=== PATIENT | male | born 1935 | race Caucasian/White ===

== ENCOUNTER 2017-12-09 00:42 | Observation (INO) | payer MEDICARE, BC ==
--- NOTE | 2017-12-09 01:13 | Emergency Department Record ---
History of Present Illness - General Chief Complaint: Cough Stated Complaint: COUGH/CHEST PAIN Time Seen by Provider: 12/09/17 01:08 Source: Patient Mode of Arrival: Ambulatory Limitations: No limitations - History of Present Illness Initial Comments: The patient is here due to a one week hx of cough and congestion. Now this evening he started having CP only when coughing. He denies any new SOB, fever, or sputum production. The patient had been to [facility] about a month ago for similar issues and was diagnosed with mild CHF. Complaint: Cough Onset/Timin -: Week(s) - Related Data Home Medications Medication Instructions Recorded Confirmed Last Taken Amlodipine Besylate [Norvasc] 2.5 mg PO DAILY 12/09/17 12/09/17 Unknown Aspirin [Aspir-Low] 81 mg PO DAILY 12/09/17 12/09/17 Unknown Atorvastatin Calcium [Lipitor] 10 mg PO QHS 12/09/17 12/09/17 Unknown Carvedilol 25 mg PO DAILY 12/09/17 12/09/17 Unknown Carvedilol [Coreg] 6.25 mg PO BID 12/09/17 12/09/17 Unknown Donepezil HCl [Aricept] 5 mg PO DAILY 12/09/17 12/09/17 Unknown Furosemide [Lasix] 20 mg PO DAILY 12/09/17 12/09/17 Unknown Isosorbide Mononitrate [Imdur] 30 mg PO DAILY 12/09/17 12/09/17 Unknown Lisinopril 20 mg PO DAILY 12/09/17 12/09/17 Unknown Memantine HCl [Namenda] 10 mg PO BID 12/09/17 12/09/17 Unknown Multivit-Min/FA/Lycopen/Lutein 1 each PO DAILY 12/09/17 12/09/17 Unknown [Centrum Silver Men Tablet] Omeprazole 20 mg PO DAILY 12/09/17 12/09/17 Unknown Rivaroxaban [Xarelto] 20 mg PO DAILY 12/09/17 12/09/17 Unknown Tramadol HCl 50 mg PO Q6H PRN 12/09/17 12/09/17 Unknown Allergies Allergy/AdvReac Type Severity Reaction Status Date / Time Cephalosporins Allergy pt unsure Verified 12/09/17 01:29 clonidine Allergy RASH Verified 12/09/17 01:29 lovastatin Allergy pt unsure Verified 12/09/17 01:29 oxaprozin AdvReac fall asleep Verified 12/09/17 01:29 rofecoxib [From Vioxx] AdvReac leg pain Verified 12/09/17 01:29 simvastatin [From Zocor] AdvReac myalgia Verified 12/09/17 01:29 Travel Screening - Travel/Exposure Within Last 30 Days Have you traveled within the last 30 days?: No Review of Systems Constitutional: Reports: Malaise. Denies: Chills, Fever Eyes: Denies: Eye discharge ENT: Reports: Congestion Respiratory: Reports: Cough. Denies: Dyspnea Cardiovascular: Reports: Chest pain (with cough only.). Denies: Arrhythmia Endocrine: Reports: Fatigue Gastrointestinal: Denies: Abdominal pain Genitourinary: Denies: Dysuria Musculoskeletal: Denies: Arthralgia, Back pain Skin: Denies: Bruising Past Medical History - SOCIAL HISTORY Smoking Status: Never smoker Alcohol Use: None Drug Use: None - RESPIRATORY Hx Respiratory Disorders: Yes Hx COPD: Yes - CARDIOVASCULAR Hx Cardio Disorders: Yes Hx CHF: Yes Hx Heart Attack: Yes - NEURO Hx Neuro Disorders: Yes Hx Dementia: Yes - GI Hx GI Disorders: Yes Hx Reflux: Yes - Hx Genitourinary Disorders: No - ENDOCRINE Hx Endocrine Disorders: No - MUSCULOSKELETAL Hx Musculoskeletal Disorders: Yes Hx Arthritis: Yes - PSYCH Hx Psych Problems: No - HEMATOLOGY/ONCOLOGY Hx Hematology/Oncology Disorders: Yes Hx Cancer: Yes (Esophageal) Hx Chemotherapy: No Hx Radiation Therapy: No Family Medical History Any Significant Family History?: No Physical Exam - General General Appearance: Alert, Oriented x3, Cooperative, No acute distress - Head Head exam: Atraumatic, Normocephalic, Normal inspection - Eye Eye exam: Normal appearance - ENT Throat exam: Normal inspection. negative: Tonsillar erythema, Tonsillar exudate - Neck Neck exam: Normal inspection, Full ROM. negative: Tenderness - Respiratory Respiratory exam: Normal lung sounds bilaterally. negative: Respiratory distress - Cardiovascular Cardiovascular Exam: Regular rate, Normal rhythm, Normal heart sounds - GI/Abdominal GI/Abdominal exam: Soft, Normal bowel sounds. negative: Tenderness - Extremities Extremities exam: Normal inspection, Full ROM, Normal capillary refill. negative: Tenderness - Back Back exam: Reports: Normal inspection - Neurological Neurological exam: Alert, Oriented X3. negative: Altered, Motor sensory deficit - Skin Skin exam: negative: Rash Course Vital Signs 12/09/17 00:45 Temperature 97.6 F Pulse Rate 76 Respiratory 20 Rate Blood Pressure 188/86 Pulse Ox 97 - Reevaluation(s) Reevaluation #1: The patient is doing OK at this time and is still coughing. His CXR clearly appears to be CHF and his BNP was only about 1000 last month and now is over 5000. We will admit him to the hospital for diuresis and also further cardiac monitoring. I again asked him about his CP and he states he ONLY has pain when coughing. 12/09/17 01:49 Reevaluation #2: The patient is doing very well at this time. He is resting comfortably in no distress or TREV now. 12/09/17 02:26 Medical Decision Making - Data Complexity MDM Data: Labs Ordered and/or Reviewed, X-Ray Ordered and/or Reviewed, EKG Ordered and/or Reviewed - Lab Data Result diagrams: 12/09/17 00:34 12/09/17 00:34 - EKG Data -: EKG Interpreted by Me (NSR at 76, LBBB.) EKG: Unchanged From Previous (No change from 06/18/17.) - Radiology Data Radiology results: Report reviewed (CXR: CHF with effusions.) Disposition Disposition: Admit Clinical Impression: CHF (congestive heart failure) Qualifiers: Heart failure type: unspecified Heart failure chronicity: unspecified Qualified Code(s): I50.9 - Heart failure, unspecified Disposition: Still a Patient at [facility] Decision to Admit: Admit from ER Decision to Admit Date: 12/09/17 Decision to Admit Time: 01:51 Accepting Physician: Ely Valiente Discussed w/Accepting Physician: 01:51 Condition: (2) Stable Time of Disposition: 01:52 Quality - Quality Measures Quality Measures: N/A - Blood Pressure Screening View Details: Yes Does Patient Have Any of the Following: Active Dx of HTN Blood Pressure Classification: Pre-Hypertensive BP Reading Systolic Measurement: 188 Diastolic Measurement: 86 Screening for High Blood Pressure: Patient Exclusion, Hx of HTN [[id number]]
[2017-12-09 01:19] LABS: BASO % 0.3 % (0-6); EOS % 3.1 % (0-6); GRAN % 74.3 % (47-80); HEMATOCRIT 39.8 % (42.0-52.0); HEMOGLOBIN 12.1 gm/dl (14.0-18.0); LYMPH % 14.8 % (16-45); MEAN CELL VOLUME 81.2 fl (81-97); MEAN CORPUSCULAR HEMOGLOBIN 24.6 pg (27-33); MEAN CORPUSCULAR HGB CONC 30.4 g/dl (32-36); MEAN PLATELET VOLUME 10.2 fl (7.4-10.4); MONO % 7.5 % (0-9); PLATELET COUNT 168 K/uL (130-400); RED CELL DISTRIBUTION WIDTH 14.7 % (11.5-14.5); WHITE BLOOD COUNT W/O DIFF 7.1 K/uL (4.2-12.2)
[2017-12-09 01:27] LABS: BLOOD UREA NITROGEN 24 mg/dL (8-23); CREATININE 1.3 mg/dL (0.7-1.2); EST GLOMERULAR FILTRATION RATE 56 mL/min
[2017-12-09 01:30] LABS: GLUCOSE,RANDOM 136 mg/dL (74-109); INR 1.5; PARTIAL THROMBOPLASTIN TIME 40.5 SECONDS (24.5-39.1); PROTHROMBIN TIME (PATIENT) 14.5 SECONDS (9.5-12.1)
[2017-12-09 01:33] LABS: CREATINE PHOSPHOKINASE 31 U/L (39-308)
[2017-12-09] MEDS ORDERED: FUROSEMIDE IV 40MG/4ML VIAL IVP ONE (01:45)
[2017-12-09] MEDS ORDERED: NITROGLYCERIN 2% OINT 1GM PKT TOP ONE (01:47)
[2017-12-09] MEDS ORDERED: TRAMADOL HCL 50 MG TABLET PO PRN (02:39)
[2017-12-09] MEDS ORDERED: NITROGLYCERIN 0.4MG SL TABLET #25 BTL SL PRN (02:39)
[2017-12-09 06:43] LABS: CKMB 2.5 ng/mL (<6.73)
[2017-12-09] MEDS: PANTOPRAZOLE SODIUM 40 MG TABLET PO SCH (06:56)
--- NOTE | 2017-12-09 08:41 | History & Physical ---
History of Present Illness - Date of Service Date of Service for History & Physical: 12/09/17 - History of Present Illness Admitting Diagnosis: 1. CHF History of Present Illness: Mr. Henry is a 81 y/o male [facility] assisted living resident with history of congestive heart failure who presents with complaint of increasing shortness of breath and persistent cough over the past week. The patient reports that he then began to have chest pain but only when he coughs. He says that he becomes short of breath when he climbs stairs but can walk around using his walker without becoming winded. The patient reports compliance with his medications and has not been eating excessive amounts of salty foods or had an increase in fluid intake. He denies radiation of his pain or palpitations. He has a history of coronary artery disease with CABG x 3, CVA, seizures and malignant neoplasm of the esophagus. 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 Chest xray shows evidence of congestion and his BNP > 5000. The patient is admitted for IV diuresis and optimization of heart failure medication. PCP: Dr. Jones Travel Screening - Travel/Exposure Within Last 30 Days Have you traveled within the last 30 days?: No - Travel/Exposure Within Last Year Have you traveled outside the [place] in the last year?: No - Additonal Travel Details Have you been exposed to anyone with a communicable illness?: No - Travel Symptoms Symptom Screening: None Review of Systems Constitutional: Reports: Malaise. Denies: Chills, Fever Eyes: Denies: Eye discharge ENT: Reports: Congestion Respiratory: Reports: Cough. Denies: Dyspnea Cardiovascular: Reports: Chest pain (with cough only.). Denies: Arrhythmia Endocrine: Reports: Fatigue Gastrointestinal: Denies: Abdominal pain Genitourinary: Denies: Dysuria Musculoskeletal: Denies: Arthralgia, Back pain Skin: Denies: Bruising Past Medical History - SOCIAL HISTORY Smoking Status: Former smoker Alcohol Use: Rare Drug Use: None - RESPIRATORY Hx Respiratory Disorders: Yes Hx Asthma: No Hx Bronchitis: No Hx COPD: No Hx Dyspnea: Yes Hx Pneumonia: Yes Hx Pulmonary Embolism: No Hx Sleep Apnea: Yes Hx Tuberculosis: No Hx of CPAP: Yes - CARDIOVASCULAR Hx Cardio Disorders: Yes Hx Abnormal EKG: Yes Hx Cardiac Cath: Yes Hx Chest Pain: No Hx CHF: Yes Hx Deep Vein Thrombosis: No Hx Edema: No Hx Heart Attack: Yes Hx Hypertension: Yes Hx Hypotension: No Hx Irregular Heartbeat: Yes Hx Palpitations: No Hx Pacemaker/Defib: No Hx Vascular Disease: No - NEURO Hx Neuro Disorders: Yes Hx Brain Tumor: No Hx CVA: Yes (2017) Hx Dementia: Yes Hx Dizziness: Yes Hx Headaches: No Hx Neuropathy: No Hx Parkinson's Disease: No Hx Seizures: No Hx Speech Problem: No Hx TIA: Yes - GI Hx GI Disorders: Yes Hx Abdominal Pain: No Hx Celiac Disease: No Hx Crohn's Disease: No Hx Diverticulitis: No Hx GI Bleed: No Hx Reflux: Yes Hx Hepatitis/Jaundice: No Hx Hiatal Hernia: Yes Hx Irritable Bowel: Yes Hx Liver Disease: No Hx Nausea/Vomiting: No Hx Obstructive Bowel: No Hx Pancreatitis: No Hx Rectal Bleeding: No Hx Ulcer: Yes Hx Wt Loss/Wt Gain: No Hx of Polyps: No - Hx Genitourinary Disorders: No Hx Bladder Problem: No Hx Dialysis: No Hx Kidney Stones: No Hx Prostate Problems: No Hx Renal Disease: No Hx UTI: No - ENDOCRINE Hx Endocrine Disorders: No Hx Diabetes: No Hx Thyroid Disease: No - MUSCULOSKELETAL Hx Musculoskeletal Disorders: Yes Hx Arthritis: Yes Hx Back Injury: No Hx Fibromyalgia: No Hx Gout: No Hx Musculoskeletal Disease: No Hx Osteoporosis: No - PSYCH Hx Psych Problems: No Hx Anxiety: No Hx Behavior Problems: No Hx Depression: No Hx Emotional Abuse: No Hx Sexual Abuse: No Hx Suicide Attempt: No Major Depressive Episode: No Feelings of Hopelessness: No - HEMATOLOGY/ONCOLOGY Hx Hematology/Oncology Disorders: Yes Hx Anemia: No Hx Blood Disorders: No Hx Bruising: No Hx Cancer: Yes (Esophageal) Hx Chemotherapy: No Hx Radiation Therapy: No Hx Clotting Problems: No Hx Sickle Cell Disease: No Hx Unexplained Bleeding: No Hx Blood Transfusions: No Hx Blood Transfusion Reaction: No Family Medical History Any Significant Family History?: No Hx Cancer: Mother, Brother/Sister Hx Diabetes: Brother/Sister Hx Heart Disease: Father, Mother, Brother/Sister Hx HTN: Mother, Brother/Sister Hx Stroke: Mother H&P Meds/Allergies - Allergies Allergies: Allergies Allergy/AdvReac Type Severity Reaction Status Date / Time Cephalosporins Allergy pt unsure Verified 12/09/17 01:29 clonidine Allergy RASH Verified 12/09/17 01:29 lovastatin Allergy pt unsure Verified 12/09/17 01:29 oxaprozin AdvReac fall asleep Verified 12/09/17 01:29 rofecoxib [From Vioxx] AdvReac leg pain Verified 12/09/17 01:29 simvastatin [From Zocor] AdvReac myalgia Verified 12/09/17 01:29 - Home Medications Home Medications Medication Instructions Recorded Confirmed Last Taken Amlodipine Besylate [Norvasc] 2.5 mg PO DAILY 12/09/17 12/09/17 Unknown Aspirin [Aspir-Low] 81 mg PO DAILY 12/09/17 12/09/17 Unknown Atorvastatin Calcium [Lipitor] 10 mg PO QHS 12/09/17 12/09/17 Unknown Carvedilol 25 mg PO DAILY 12/09/17 12/09/17 Unknown Carvedilol [Coreg] 6.25 mg PO BID 12/09/17 12/09/17 Unknown Donepezil HCl [Aricept] 5 mg PO DAILY 12/09/17 12/09/17 Unknown Furosemide [Lasix] 20 mg PO DAILY 12/09/17 12/09/17 Unknown Isosorbide Mononitrate [Imdur] 30 mg PO DAILY 12/09/17 12/09/17 Unknown Lisinopril 20 mg PO DAILY 12/09/17 12/09/17 Unknown Memantine HCl [Namenda] 10 mg PO BID 12/09/17 12/09/17 Unknown Multivit-Min/FA/Lycopen/Lutein 1 each PO DAILY 12/09/17 12/09/17 Unknown [Centrum Silver Men Tablet] Omeprazole 20 mg PO DAILY 12/09/17 12/09/17 Unknown Rivaroxaban [Xarelto] 20 mg PO DAILY 12/09/17 12/09/17 Unknown Tramadol HCl 50 mg PO Q6H PRN 12/09/17 12/09/17 Unknown - Active Medications Active Medications: Current Medications Acetaminophen (Tylenol 500mg Tab) 500 mg PO Q6H PRN PRN Reason: PAIN - MILD(1-4)/FEVER Amlodipine Besylate (Norvasc) 2.5 mg PO DAILY [facility] Aspirin (Ecotrin (Ec)) 81 mg PO DAILY SKIP Carvedilol (Coreg) 25 mg PO DAILY SKIP Carvedilol (Coreg) 6.25 mg PO BID [facility] Donepezil HCl (Aricept) 5 mg PO DAILY [facility] Furosemide (Lasix Iv) 20 mg IVP BIDDIUR [facility] Isosorbide Mononitrate (Imdur) 30 mg PO DAILY SKIP Lisinopril (Zestril) 20 mg PO DAILY [facility] Memantine (Namenda) 10 mg PO BID [facility] Nitroglycerin (Nitrostat 0.4mg) 0.4 mg SL Q5MIN PRN PRN Reason: CHEST PAIN Non-Formulary Medication (Atorvastatin Calcium [Lipitor]) 10 mg PO QHS SKIP Pantoprazole Sodium (Protonix) 40 mg PO DAILYAC SKIP Last Admin: 12/09/17 06:56 Dose: 40 mg Rivaroxaban (Xarelto) 20 mg PO DAILY SKIP Tramadol HCl (Ultram) 50 mg PO Q6H PRN PRN Reason: PAIN - MOD TO SEVERE (5-10) Physical Exam - Vital Signs Vital Signs: Vital Signs - Last 24 Hrs Temp Pulse Pulse Resp BP BP Pulse Ox 12/09/17 06:00 72 18 96 12/09/17 04:00 97.6 F 66 18 155/72 100 12/09/17 02:39 97.4 F L 74 16 120/64 99 12/09/17 02:30 74 20 144/80 98 12/09/17 01:47 77 24 133/71 98 12/09/17 00:45 97.6 F 76 20 188/86 97 - General General Appearance: Alert, Oriented x3, Cooperative, No acute distress Limitations: No limitations - Head Head exam: Atraumatic, Normocephalic, Normal inspection - Eye Eye exam: Normal appearance - ENT Throat exam: Normal inspection. negative: Tonsillar erythema, Tonsillar exudate - Neck Neck exam: Normal inspection, Full ROM. negative: Tenderness - Respiratory Respiratory exam: Normal lung sounds bilaterally, Rales (of bilateral posterior lung bases. ), Other. negative: Respiratory distress - Cardiovascular Cardiovascular Exam: Regular rate, Normal rhythm, Normal heart sounds Peripheral Pulses: 2+: Radial (R), Radial (L), Dorsalis Pedis (R), Dorsalis Pedis (L) - GI/Abdominal GI/Abdominal exam: Soft, Normal bowel sounds. negative: Tenderness - Extremities Extremities exam: Normal inspection, Full ROM, Normal capillary refill. negative: Tenderness - Back Back exam: Reports: Normal inspection - Neurological Neurological exam: Alert, Oriented X3. negative: Altered, Motor sensory deficit - Skin Skin exam: negative: Rash Results - Labs Result Diagrams: 12/09/17 00:34 12/09/17 00:34 Labs Last 24 Hours: Laboratory Results - last 24 hr 12/09/17 12/09/17 12/09/17 00:34 00:34 00:34 WBC 7.1 RBC 4.90 Hgb 12.1 L Hct 39.8 L MCV 81.2 MCH 24.6 L MCHC 30.4 L RDW 14.7 H Plt Count 168 MPV 10.2 Gran % 74.3 Lymphocytes % 14.8 L Monocytes % 7.5 Eosinophils % 3.1 Basophils % 0.3 PT 14.5 H INR 1.5 APTT 40.5 H Sodium 140 Potassium 4.5 Chloride 100 Carbon Dioxide 31.0 H Anion Gap 9.0 BUN 24 H Creatinine 1.3 H Estimated GFR 56 Random Glucose 136 H Calcium 8.9 Creatine Kinase 31 L CK-MB (CK-2) 2.0 Troponin T < 0.010 NT-Pro-B Natriuret Pep 5047.00 H 12/09/17 12/09/17 01:15 06:15 WBC RBC Hgb Hct MCV MCH MCHC RDW Plt Count MPV Gran % Lymphocytes % Monocytes % Eosinophils % Basophils % PT INR APTT Sodium Potassium Chloride Carbon Dioxide Anion Gap BUN Creatinine Estimated GFR Random Glucose Calcium Creatine Kinase CK-MB (CK-2) 2.5 Troponin T < 0.010 NT-Pro-B Natriuret Pep Cancelled VTE H&P Assessment - Risk for VTE Risk for VTE: Yes Risk Level: High Risk Assessment Date: 12/09/17 Risk Assessment Time: 09:57 VTE Orders Placed or Will Be Placed: Yes Plan - Detailed Diagnosis and Plan (1) Acute exacerbation of congestive heart failure Current Visit: Yes Status: Acute Base Code: I50.9 - HEART FAILURE, UNSPECIFIED Comment: 12/09/17: - CXR: evidence of congestion, BNP > 5000 - IV Lasix 20mg BID, resume Coreg 25mg and Coreg 6.25mg BID?, Imdur 30mg, and Lisinopril 20mg daily,Atorvastatin 10mg, ASA 81mg. - repeat basic metabolic panel, daily weights, I/Os - continuous cardiac monitoring (2) HTN (hypertension) Current Visit: Yes Status: Acute Base Code: I10 - ESSENTIAL (PRIMARY) HYPERTENSION Comment: 12/09/17: - BP 155/72, HR 72. - resume Amlodipine 2.5mg, Lisinopril 20mg daily. (3) CAD (coronary artery disease) Current Visit: Yes Status: Acute Base Code: I25.10 - ATHSCL HEART DISEASE OF [place] CORONARY ARTERY W/O ANG PCTRS Comment: 12/09/17: - old LBBB, Qtc prolongation, NSR, hx of CABG x 3 - resumes ASA, Coreg, Lisinopril, Atorvastatin. - cont cardiac sonographer (4) DVT prophylaxis Current Visit: Yes Status: Acute Base Code: [id number] - Comment: 12/09/17: - pt on Xarelto but we are unclear if he has a fib, or hx of dvt. There is no documentation of either of these conditions. (5) DNR (do not resuscitate) Current Visit: Yes Status: Acute Base Code: Z66 - DO NOT RESUSCITATE Comment: 12/09/17: - pt is DNR on this admission. - Disposition D/C tomorrow if improved
[2017-12-09] MEDS: RIVAROXABAN 20 MG TABLET PO SCH (09:35)
[2017-12-09] MEDS: MEMANTINE HCL 10 MG TABLET PO SCH ×2 (09:35→22:08)
[2017-12-09] MEDS: AMLODIPINE BESYLATE 5MG TAB PO SCH (09:35)
[2017-12-09] MEDS: ISOSORBIDE MONONITRATE 30 MG TAB.ER.24H PO SCH (09:35)
[2017-12-09] MEDS: ASPIRIN 81 MG TABEC PO SCH (09:35)
[2017-12-09] MEDS: DONEPEZIL HCL 5 MG TABLET PO SCH (09:36)
[2017-12-09] MEDS: LISINOPRIL 20 MG TABLET PO SCH (09:36)
[2017-12-09] MEDS: CARVEDILOL 3.125 MG TABLET PO SCH ×2 (09:36→22:06)
[2017-12-09] MEDS: FUROSEMIDE IV 20MG/2ML VIAL IVP SCH ×2 (09:36→16:12)
[2017-12-09] MEDS: CARVEDILOL 12.5 MG TABLET PO SCH (09:36)
--- NOTE | 2017-12-09 10:59 | RADIOLOGY REPORT ---
EXAM: CHEST, TWO VIEWS HISTORY: DIFFICULTY IN BREATHING. TECHNIQUE: Frontal and lateral views of the chest were performed. FINDINGS: The heart size is normal. Postop surgical change. The lungs are hyperinflated. Bilateral lower lobe air space opacities with pleural effusion. IMPRESSION: BILATERAL LOWER LOBE AIR SPACE OPACITIES WITH PLEURAL EFFUSION. JOB NUMBER: [id number] MTDD
[2017-12-09 14:40] LABS: CKMB 1.7 ng/mL (<6.73)
[2017-12-09] MEDS: ATORVASTATIN 20 MG TABLET PO SCH (22:07)
[2017-12-09] MEDS: ACETAMINOPHEN 500 MG TABLET PO PRN (22:08)
[2017-12-10 06:11] LABS: BASO % 0.3 % (0-6); EOS % 5.5 % (0-6); GRAN % 64.8 % (47-80); HEMATOCRIT 35.8 % (42.0-52.0); HEMOGLOBIN 10.8 gm/dl (14.0-18.0); LYMPH % 19.3 % (16-45); MEAN CELL VOLUME 80.8 fl (81-97); MEAN CORPUSCULAR HGB CONC 30.2 g/dl (32-36); MEAN PLATELET VOLUME 9.6 fl (7.4-10.4); MONO % 10.1 % (0-9); PLATELET COUNT 160 K/uL (130-400); RED BLOOD COUNT 4.43 M/uL (4.40-5.70); RED CELL DISTRIBUTION WIDTH 14.8 % (11.5-14.5); WHITE BLOOD COUNT W/O DIFF 7.4 K/uL (4.2-12.2)
[2017-12-10 06:12] LABS: MEAN CORPUSCULAR HEMOGLOBIN 24.3 pg (27-33)
[2017-12-10 06:26] LABS: CREATININE 1.6 mg/dL (0.7-1.2)
[2017-12-10] MEDS: PANTOPRAZOLE SODIUM 40 MG TABLET PO SCH (08:05)
[2017-12-10] MEDS: LISINOPRIL 20 MG TABLET PO SCH (09:32)
[2017-12-10] MEDS: CARVEDILOL 3.125 MG TABLET PO SCH ×2 (09:32→22:09)
[2017-12-10] MEDS: CARVEDILOL 12.5 MG TABLET PO SCH (09:32)
[2017-12-10] MEDS: RIVAROXABAN 20 MG TABLET PO SCH (09:32)
[2017-12-10] MEDS: MEMANTINE HCL 10 MG TABLET PO SCH ×2 (09:32→22:11)
[2017-12-10] MEDS: DONEPEZIL HCL 5 MG TABLET PO SCH (09:36)
[2017-12-10] MEDS: ISOSORBIDE MONONITRATE 30 MG TAB.ER.24H PO SCH (09:36)
[2017-12-10] MEDS: ASPIRIN 81 MG TABEC PO SCH (09:36)
[2017-12-10] MEDS: AMLODIPINE BESYLATE 5MG TAB PO SCH (09:37)
[2017-12-10] MEDS: FUROSEMIDE IV 20MG/2ML VIAL IVP SCH (09:37)
--- NOTE | 2017-12-10 10:37 | Physician Progress Note ---
Subjective - Date Date of Physician Progress Note: 12/10/17 - Subjective Subjective Comment: Patient alert and awake. He is able to get out of bed and ambulate to restroom with assistance. He is maintaining sats > 94% w/o supplemtal oxygen. Objective - Vital Signs Vital Signs: Vital Signs - Last 24 Hrs Temp Pulse Pulse Pulse Resp BP Pulse Ox 12/10/17 09:00 98.9 F 60 20 138/89 97 12/10/17 08:56 16 96 12/10/17 08:26 68 16 12/10/17 05:00 97.6 F 62 18 136/88 99 12/10/17 01:00 97.9 F 60 18 142/64 100 12/09/17 20:00 97.6 F 70 18 102/58 99 12/09/17 17:00 98.1 F 75 20 116/68 94 L 12/09/17 13:00 98.3 F 69 18 83/45 97 12/09/17 11:20 52 L 20 96 - General General Appearance: Alert, Oriented x3, Cooperative, No acute distress Limitations: No limitations - Head Head exam: Atraumatic, Normocephalic, Normal inspection - Eye Eye exam: Normal appearance - ENT Throat exam: Normal inspection. negative: Tonsillar erythema, Tonsillar exudate - Neck Neck exam: Normal inspection, Full ROM. negative: Tenderness - Respiratory Respiratory exam: Decreased breath sounds (on the left ), Rales (no rales this morning ), Other. negative: Respiratory distress - Cardiovascular Cardiovascular Exam: Regular rate, Normal rhythm, Normal heart sounds Peripheral Pulses: 2+: Radial (R), Radial (L), Dorsalis Pedis (R), Dorsalis Pedis (L) - GI/Abdominal GI/Abdominal exam: Soft, Normal bowel sounds. negative: Tenderness - Extremities Extremities exam: Normal inspection, Full ROM, Normal capillary refill. negative: Tenderness - Back Back exam: Reports: Normal inspection - Neurological Neurological exam: Alert, Oriented X3. negative: Altered, Motor sensory deficit - Skin Skin exam: negative: Rash Assessment and Plan - Assessment and Plan (1) Acute on chronic renal insufficiency Current Visit: Yes Status: Acute Base Code: N28.9 - DISORDER OF KIDNEY AND URETER, UNSPECIFIED; N18.9 - CHRONIC KIDNEY DISEASE, UNSPECIFIED Comment: 12/10/17: - Bun/Cr 37/1.6, possibly due to diuresis. - Repeat electrolytes in the morning - Lasix 20mg BID to PO BID daily. (2) Acute exacerbation of congestive heart failure Current Visit: Yes Status: Acute Base Code: I50.9 - HEART FAILURE, UNSPECIFIED Comment: 12/10/17: - CXR: evidence of congestion, BNP > 5000 - IV Lasix 20mg BID, resume Coreg 25mg and Coreg 6.25mg BID?, Imdur 30mg, and Lisinopril 20mg daily,Atorvastatin 10mg, ASA 81mg. - repeat basic metabolic panel, daily weights, I/Os - continuous cardiac monitoring (3) HTN (hypertension) Current Visit: Yes Status: Acute Base Code: I10 - ESSENTIAL (PRIMARY) HYPERTENSION Comment: 12/10/17: - BP 136/88, HR 68 - resume Amlodipine 2.5mg, Lisinopril 20mg daily. (4) CAD (coronary artery disease) Current Visit: Yes Status: Acute Base Code: I25.10 - ATHSCL HEART DISEASE OF [place] CORONARY ARTERY W/O ANG PCTRS Comment: 12/10/17: - old LBBB, Qtc prolongation, NSR, hx of CABG x 3 - resumes ASA, Coreg, Lisinopril, Atorvastatin. - cont compliance monitor (5) DVT prophylaxis Current Visit: Yes Status: Acute Base Code: [id number] - Comment: 12/10/17: - pt on Xarelto but we are unclear if he has a fib, or hx of dvt. There is no documentation of either of these conditions. (6) DNR (do not resuscitate) Current Visit: Yes Status: Acute Base Code: Z66 - DO NOT RESUSCITATE Comment: 12/10/17: - pt is DNR on this admission. - Disposition Disposition: D/C back to [facility] living. Follow up with Dr. Jones within the week. Results - Labs Result Diagrams: 12/10/17 05:55 12/10/17 05:55 Labs Last 24 Hours: Laboratory Results - last 24 hr 12/09/17 12/10/17 12/10/17 14:12 05:55 05:55 WBC 7.4 RBC 4.43 Hgb 10.8 L Hct 35.8 L MCV 80.8 L MCH 24.3 L MCHC 30.2 L RDW 14.8 H Plt Count 160 MPV 9.6 Gran % 64.8 Lymphocytes % 19.3 Monocytes % 10.1 H Eosinophils % 5.5 Basophils % 0.3 Sodium 139 Potassium 4.2 Chloride 98 Carbon Dioxide 30.0 H Anion Gap 11.0 BUN 37 H Creatinine 1.6 H Estimated GFR 44 Random Glucose 114 H Calcium 8.9 CK-MB (CK-2) 1.7 Troponin T 0.015 H DVT/PE Assessment - Risk for VTE Risk for VTE: No Risk Level: High Risk Assessment Date: 12/09/17 Risk Assessment Time: 09:57 VTE Orders Placed or Will Be Placed: Yes - Active Medicaitons Current Medications: Current Medications Acetaminophen (Tylenol 500mg Tab) 500 mg PO Q6H PRN PRN Reason: PAIN - MILD(1-4)/FEVER Last Admin: 12/09/17 22:08 Dose: 500 mg Amlodipine Besylate (Norvasc) 2.5 mg PO DAILY [facility] Last Admin: 12/10/17 09:37 Dose: 2.5 mg Aspirin (Ecotrin (Ec)) 81 mg PO DAILY [facility] Last Admin: 12/10/17 09:36 Dose: 81 mg Atorvastatin Calcium (Lipitor) 10 mg PO QHS [facility] Last Admin: 12/09/17 22:07 Dose: 10 mg Carvedilol (Coreg) 25 mg PO DAILY [facility] Last Admin: 12/10/17 09:32 Dose: 25 mg Carvedilol (Coreg) 6.25 mg PO BID [facility] Last Admin: 12/10/17 09:32 Dose: 6.25 mg Donepezil HCl (Aricept) 5 mg PO DAILY [facility] Last Admin: 12/10/17 09:36 Dose: 5 mg Furosemide (Lasix Iv) 20 mg IVP BIDDIUR [facility] Last Admin: 12/10/17 09:37 Dose: 20 mg Isosorbide Mononitrate (Imdur) 30 mg PO DAILY [facility] Last Admin: 12/10/17 09:36 Dose: 30 mg Lisinopril (Zestril) 20 mg PO DAILY [facility] Last Admin: 12/10/17 09:32 Dose: 20 mg Memantine (Namenda) 10 mg PO BID [facility] Last Admin: 12/10/17 09:32 Dose: 10 mg Nitroglycerin (Nitrostat 0.4mg) 0.4 mg SL Q5MIN PRN PRN Reason: CHEST PAIN Pantoprazole Sodium (Protonix) 40 mg PO DAILYAC [facility] Last Admin: 12/10/17 08:05 Dose: 40 mg Rivaroxaban (Xarelto) 20 mg PO DAILY [facility] Last Admin: 12/10/17 09:32 Dose: 20 mg Tramadol HCl (Ultram) 50 mg PO Q6H PRN PRN Reason: PAIN - MOD TO SEVERE (5-10) AMI Plan - Labs Result Diagrams: 12/10/17 05:55 12/10/17 05:55
[2017-12-10] MEDS ORDERED: FUROSEMIDE IV 20MG/2ML VIAL IVP ONE (16:24)
[2017-12-10] MEDS: FUROSEMIDE 20 MG TABLET PO SCH (16:33)
[2017-12-10] MEDS: ACETAMINOPHEN 500 MG TABLET PO PRN (22:09)
[2017-12-10] MEDS: ATORVASTATIN 20 MG TABLET PO SCH (22:10)
[2017-12-11 06:39] LABS: CREATININE 1.5 mg/dL (0.7-1.2)
[2017-12-11] MEDS: PANTOPRAZOLE SODIUM 40 MG TABLET PO SCH (06:50)
[2017-12-11] MEDS: MEMANTINE HCL 10 MG TABLET PO SCH ×2 (09:08→21:55)
[2017-12-11] MEDS: CARVEDILOL 3.125 MG TABLET PO SCH ×2 (09:08→21:57)
[2017-12-11] MEDS: CARVEDILOL 12.5 MG TABLET PO SCH (09:08)
[2017-12-11] MEDS: RIVAROXABAN 20 MG TABLET PO SCH (09:08)
[2017-12-11] MEDS: ASPIRIN 81 MG TABEC PO SCH (09:08)
[2017-12-11] MEDS: LISINOPRIL 20 MG TABLET PO SCH (09:08)
[2017-12-11] MEDS: FUROSEMIDE 20 MG TABLET PO SCH ×2 (09:08→16:35)
[2017-12-11] MEDS: DONEPEZIL HCL 5 MG TABLET PO SCH (09:08)
--- NOTE | 2017-12-11 10:03 | Discharge Summary ---
Providers Date of admission: 12/09/17 02:23 Attending physician: SHAVON ASTUDILLO Primary care physician: Luis Jones Physical Exam - Vital Signs Vital Signs: Vital Signs - Last 24 Hrs Temp Pulse Pulse Resp BP BP Pulse Ox 12/11/17 09:00 65 18 110/46 97 12/11/17 08:26 68 20 12/11/17 07:30 97.8 F 62 20 155/63 98 12/11/17 05:00 98.1 F 55 L 20 137/53 97 12/11/17 00:10 97.6 F 64 20 149/66 98 12/10/17 21:00 68 12/10/17 17:00 99 F 68 20 126/59 95 12/10/17 13:00 99.1 F 64 64 24 110/56 93 L 12/10/17 10:42 18 92 L 12/10/17 10:36 18 96 - General General Appearance: Alert, Oriented x3, Cooperative, No acute distress Limitations: No limitations - Head Head exam: Atraumatic, Normocephalic, Normal inspection - Eye Eye exam: Normal appearance - ENT Throat exam: Normal inspection. negative: Tonsillar erythema, Tonsillar exudate - Neck Neck exam: Normal inspection, Full ROM. negative: Tenderness - Respiratory Respiratory exam: Decreased breath sounds (on the left ), Rales (no rales this morning ), Other. negative: Respiratory distress - Cardiovascular Cardiovascular Exam: Regular rate, Normal rhythm, Normal heart sounds Peripheral Pulses: 2+: Radial (R), Radial (L), Dorsalis Pedis (R), Dorsalis Pedis (L) - GI/Abdominal GI/Abdominal exam: Soft, Normal bowel sounds. negative: Tenderness - Extremities Extremities exam: Normal inspection, Full ROM, Normal capillary refill. negative: Tenderness - Back Back exam: Reports: Normal inspection - Neurological Neurological exam: Alert, Oriented X3. negative: Altered, Motor sensory deficit - Skin Skin exam: negative: Rash Hospitalization - Hospitalization Admission Diagnosis: 1. CHF - Problem List/Discharge Diagnosis (1) Acute on chronic renal insufficiency Current Visit: Yes Status: Acute Base Code: N28.9 - DISORDER OF KIDNEY AND URETER, UNSPECIFIED; N18.9 - CHRONIC KIDNEY DISEASE, UNSPECIFIED Comment: 12/10/17: - Bun/Cr 37/1.6, possibly due to diuresis. - Repeat electrolytes in the morning - Lasix 20mg BID to PO BID daily. (2) Acute exacerbation of congestive heart failure Current Visit: Yes Status: Acute Base Code: I50.9 - HEART FAILURE, UNSPECIFIED Comment: 12/10/17: - CXR: evidence of congestion, BNP > 5000 - IV Lasix 20mg BID, resume Coreg 25mg and Coreg 6.25mg BID?, Imdur 30mg, and Lisinopril 20mg daily,Atorvastatin 10mg, ASA 81mg. - repeat basic metabolic panel, daily weights, I/Os - continuous cardiac monitoring (3) HTN (hypertension) Current Visit: Yes Status: Acute Base Code: I10 - ESSENTIAL (PRIMARY) HYPERTENSION Comment: 12/10/17: - BP 136/88, HR 68 - resume Amlodipine 2.5mg, Lisinopril 20mg daily. (4) CAD (coronary artery disease) Current Visit: Yes Status: Acute Base Code: I25.10 - ATHSCL HEART DISEASE OF [place] CORONARY ARTERY W/O ANG PCTRS Comment: 12/10/17: - old LBBB, Qtc prolongation, NSR, hx of CABG x 3 - resumes ASA, Coreg, Lisinopril, Atorvastatin. - cont youth nutritional monitor (5) DVT prophylaxis Current Visit: Yes Status: Acute Base Code: ALC3747 - Comment: 12/10/17: - pt on Xarelto but we are unclear if he has a fib, or hx of dvt. There is no documentation of either of these conditions. (6) DNR (do not resuscitate) Current Visit: Yes Status: Acute Base Code: Z66 - DO NOT RESUSCITATE Comment: 12/10/17: - pt is DNR on this admission. - Disposition D/C back to [facility]. Follow up with Dr. Jones within the week. - Hospitalization Course Procedures: Imaging and X-Rays 12/09/17 01:12 CHEST 2 VIEWS [RAD] Stat 12/10/17 16:25 CHEST 2 VIEWS [RAD] Stat Cardiology Procedures 12/09/17 01:12 City Dispatch Supervisor NOW EKG NOW 12/09/17 02:39 City Dispatch Supervisor .Continuous EKG QDX2@0600 Abnormal Labs: Abnormal Lab Results 12/09/17 12/09/17 12/09/17 Range/Units 00:34 00:34 00:34 Hgb 12.1 L (14.0-18.0) gm/dl Hct 39.8 L (42.0-52.0) % MCV (81-97) fl MCH 24.6 L (27-33) pg MCHC 30.4 L (32-36) g/dl RDW 14.7 H (11.5-14.5) % Lymphocytes % 14.8 L (16-45) % Monocytes % (0-9) % PT 14.5 H (9.5-12.1) SECONDS APTT 40.5 H (24.5-39.1) SECONDS Carbon Dioxide 31.0 H (22-29) mmol/L BUN 24 H (8-23) mg/dL Creatinine 1.3 H (0.7-1.2) mg/dL Random Glucose 136 H (74-109) mg/dL Creatine Kinase 31 L (39-308) U/L Troponin T (0-0.010) ng/mL NT-Pro-B Natriuret Pep 5047.00 H (<450) pg/mL 12/09/17 12/10/17 12/10/17 Range/Units 14:12 05:55 05:55 Hgb 10.8 L (14.0-18.0) gm/dl Hct 35.8 L (42.0-52.0) % MCV 80.8 L (81-97) fl MCH 24.3 L (27-33) pg MCHC 30.2 L (32-36) g/dl RDW 14.8 H (11.5-14.5) % Lymphocytes % (16-45) % Monocytes % 10.1 H (0-9) % PT (9.5-12.1) SECONDS APTT (24.5-39.1) SECONDS Carbon Dioxide 30.0 H (22-29) mmol/L BUN 37 H (8-23) mg/dL Creatinine 1.6 H (0.7-1.2) mg/dL Random Glucose 114 H (74-109) mg/dL Creatine Kinase (39-308) U/L Troponin T 0.015 H (0-0.010) ng/mL NT-Pro-B Natriuret Pep (<450) pg/mL 12/11/17 Range/Units 06:10 Hgb (14.0-18.0) gm/dl Hct (42.0-52.0) % MCV (81-97) fl MCH (27-33) pg MCHC (32-36) g/dl RDW (11.5-14.5) % Lymphocytes % (16-45) % Monocytes % (0-9) % PT (9.5-12.1) SECONDS APTT (24.5-39.1) SECONDS Carbon Dioxide 30.0 H (22-29) mmol/L BUN 40 H (8-23) mg/dL Creatinine 1.5 H (0.7-1.2) mg/dL Random Glucose 121 H (74-109) mg/dL Creatine Kinase (39-308) U/L Troponin T (0-0.010) ng/mL NT-Pro-B Natriuret Pep (<450) pg/mL Condition at Discharge: (2) Stable Discharge Medications - Discharge Medications Home Medications: Ambulatory Orders Amlodipine Besylate [Norvasc] 2.5 mg PO DAILY 12/09/17 [Last Taken Unknown] Aspirin [Aspir-Low] 81 mg PO DAILY 12/09/17 [Last Taken Unknown] Atorvastatin Calcium [Lipitor] 10 mg PO QHS 12/09/17 [Last Taken Unknown] Carvedilol 25 mg PO DAILY 12/09/17 [Last Taken Unknown] Carvedilol [Coreg] 6.25 mg PO BID 12/09/17 [Last Taken Unknown] Donepezil HCl [Aricept] 5 mg PO DAILY 12/09/17 [Last Taken Unknown] Furosemide [Lasix] 20 mg PO DAILY 12/09/17 [Last Taken Unknown] Isosorbide Mononitrate [Imdur] 30 mg PO DAILY 12/09/17 [Last Taken Unknown] Lisinopril 20 mg PO DAILY 12/09/17 [Last Taken Unknown] Memantine HCl [Namenda] 10 mg PO BID 12/09/17 [Last Taken Unknown] Multivit-Min/FA/Lycopen/Lutein [Centrum Silver Men Tablet] 1 each PO DAILY 12/09 [Last Taken Unknown] Omeprazole 20 mg PO DAILY 12/09/17 [Last Taken Unknown] Rivaroxaban [Xarelto] 20 mg PO DAILY 12/09/17 [Last Taken Unknown] Tramadol HCl 50 mg PO Q6H PRN 12/09/17 [Last Taken Unknown] Discharge Plan - Discharge Instructions Instructions: Heart Failure (ED) Quality Measures - Quality Measures Quality Measures: Advance Directives, Coronary Artery Disease: Antiplatelet Therapy, Documentation of Current Medications in Medical Record, Elder Maltreatment Screen and Follow-Up Plan, Heart Failure, Screening for High Blood Pressure and F/U Documented - Current Medications Quality Measure: Measure #130: Documentation of Current Medications - Blood Pressure Screening Quality Measure: Screening for High Blood Pressure and Follow-Up Documented Blood Pressure Classification: Pre-Hypertensive BP Reading Systolic Measurement: 144 Diastolic Measurement: 80 Screening for High Blood Pressure: < Pre-Hypertensive BP, F/U Documented > [ G8950] - Coronary Artery Disease Quality Measure: Measure #6: Coronary Artery Disease (CAD) - Heart Failure (NAHUN/ARB Therapy) Quality Measure: Heart Failure - Heart Failure (Beta-allegra Therapy) Quality Measure: Heart Failure - Advance Directives Quality Measure: Measure #47: Care Plan Advance Directives Established: No Advance Directives Information Provided To Patient: No Advance Directives on File: No Living Will: No (unknown) Power of Heel Washer Stringing Machine Operator: No (unknown) - Elder Abuse Suspicion Index Screening: Elder Abuse Suspicion Index Screening Rely on people for bathing, dressing, shopping, banking, etc: Yes Prevented from getting food, clothes, medication, etc: No Made to feel shamed or threatened by someone: No Forced to sign papers or use money against will: No Feel afraid, touched in ways not wanted or hurt physically: No Poor eye contact, withdrawn, malnourished, cuts or bruises: No Screening Result: Negative result EASI Reference Information: Rita NORRIS, Lanre C, Silvio D, Kev Mosher.Development and validation of a tool to assist physicians identification of elder abuse: The Elder Abuse Suspicion Index (EASI ). Journal of Elder Abuse and Neglect, 2008; 20 (3): 276-300. - Elder Maltreatment Screen Quality Measures: Elder Maltreatment Screen and Follow-Up Plan Elder Maltreatment Screen: <Negative, No Follow-Up Plan Required> [G8734]
[2017-12-11] MEDS: ALBUTEROL SULFATE (0.083%) 2.5 MG/3 ML NEB INH PRN ×2 (10:06→16:03)
--- NOTE | 2017-12-11 11:01 | Physician Progress Note ---
Subjective - Date Date of Physician Progress Note: 12/11/17 - Subjective Subjective Comment: Patient alert and awake. He is able to get out of bed and ambulate to restroom with assistance. He is maintaining sats > 94% w/o supplemtal oxygen. He has a persistent wet cough but is not bringing up any sputum. He denies chest pain or shortness of breath. Objective - Vital Signs Vital Signs: Vital Signs - Last 24 Hrs Temp Pulse Pulse Pulse Resp BP BP 12/11/17 10:06 74 18 12/11/17 09:00 65 18 110/46 12/11/17 08:26 68 20 12/11/17 07:30 97.8 F 62 20 155/63 12/11/17 05:00 98.1 F 55 L 20 137/53 12/11/17 00:10 97.6 F 64 20 149/66 12/10/17 21:00 68 12/10/17 17:00 99 F 68 20 126/59 12/10/17 13:00 99.1 F 64 64 24 110/56 Pulse Ox 12/11/17 10:06 98 12/11/17 09:00 97 12/11/17 08:26 12/11/17 07:30 98 12/11/17 05:00 97 12/11/17 00:10 98 12/10/17 21:00 12/10/17 17:00 95 12/10/17 13:00 93 L - General General Appearance: Alert, Oriented x3, Cooperative, No acute distress Limitations: No limitations - Head Head exam: Atraumatic, Normocephalic, Normal inspection - Eye Eye exam: Normal appearance - ENT Throat exam: Normal inspection. negative: Tonsillar erythema, Tonsillar exudate - Neck Neck exam: Normal inspection, Full ROM. negative: Tenderness - Respiratory Respiratory exam: Decreased breath sounds (on the left ), Rales (no rales this morning ), Other. negative: Respiratory distress - Cardiovascular Cardiovascular Exam: Regular rate, Normal rhythm, Normal heart sounds Peripheral Pulses: 2+: Radial (R), Radial (L), Dorsalis Pedis (R), Dorsalis Pedis (L) - GI/Abdominal GI/Abdominal exam: Soft, Normal bowel sounds. negative: Tenderness - Extremities Extremities exam: Normal inspection, Full ROM, Normal capillary refill. negative: Tenderness - Back Back exam: Reports: Normal inspection - Neurological Neurological exam: Alert, Oriented X3. negative: Altered, Motor sensory deficit - Skin Skin exam: negative: Rash Assessment and Plan - Assessment and Plan (1) Pneumonia of both lower lobes Current Visit: Yes Status: Acute Base Code: J18.9 - PNEUMONIA, UNSPECIFIED ORGANISM Comment: 12/11/17: - CXR 12/10: opacities of bilateral lower lung lobes. - Recephin 1 gm Q24H, Zithromax 500mg Q24H - Albuterol nebs Q6H ORN - Oxygen to maintain sats > 92% (2) Acute exacerbation of congestive heart failure Current Visit: Yes Status: Acute Base Code: I50.9 - HEART FAILURE, UNSPECIFIED Comment: 12/11/17: - CXR: evidence of congestion, BNP > 5000 - IV Lasix 20mg BID, resume Coreg 25mg and Coreg 6.25mg BID?, Imdur 30mg held, and Lisinopril 20mg daily,Atorvastatin 10mg, ASA 81mg. - repeat basic metabolic panel, daily weights, I/Os - continuous cardiac monitoring (3) Acute on chronic renal insufficiency Current Visit: Yes Status: Acute Base Code: N28.9 - DISORDER OF KIDNEY AND URETER, UNSPECIFIED; N18.9 - CHRONIC KIDNEY DISEASE, UNSPECIFIED Comment: 12/11/17: - Bun/Cr 37/1.6, --> 40/1.5 - Repeat electrolytes in the morning - Lasix 20mg BID to PO BID daily. (4) HTN (hypertension) Current Visit: Yes Status: Acute Base Code: I10 - ESSENTIAL (PRIMARY) HYPERTENSION Comment: 12/11/17: - BP 110/46 - resume Amlodipine 2.5mg, Lisinopril 20mg daily. Hold BP medications. (5) CAD (coronary artery disease) Current Visit: Yes Status: Acute Base Code: I25.10 - ATHSCL HEART DISEASE OF [place] CORONARY ARTERY W/O ANG PCTRS Comment: 12/11/17: - old LBBB, Qtc prolongation, NSR, hx of CABG x 3 - resumes ASA, Coreg, Lisinopril, Atorvastatin. - cont monitoring and evaluation advisor (6) DVT prophylaxis Current Visit: Yes Status: Acute Base Code: [id number] - Comment: 12/11/17: - pt on Xarelto but we are unclear if he has a fib, or hx of dvt. There is no documentation of either of these conditions. (7) DNR (do not resuscitate) Current Visit: Yes Status: Acute Base Code: Z66 - DO NOT RESUSCITATE Comment: 12/11/17: - pt is DNR on this admission. Results - Labs Result Diagrams: 12/10/17 05:55 12/11/17 06:10 Labs Last 24 Hours: Laboratory Results - last 24 hr 12/11/17 06:10 Sodium 140 Potassium 4.4 Chloride 100 Carbon Dioxide 30.0 H Anion Gap 10.0 BUN 40 H Creatinine 1.5 H Estimated GFR 48 Random Glucose 121 H Calcium 8.8 DVT/PE Assessment - Risk for VTE Risk for VTE: No Risk Level: High Risk Assessment Date: 12/09/17 Risk Assessment Time: 09:57 VTE Orders Placed or Will Be Placed: Yes - Active Medicaitons Current Medications: Current Medications Acetaminophen (Tylenol 500mg Tab) 500 mg PO Q6H PRN PRN Reason: PAIN - MILD(1-4)/FEVER Last Admin: 12/10/17 22:09 Dose: 500 mg Albuterol Sulfate () 2.5 mg INH RESP.Q6H.WA PRN PRN Reason: DIFFICULTY IN BREATHING Last Admin: 12/11/17 10:06 Dose: 2.5 mg Amlodipine Besylate (Norvasc) 2.5 mg PO DAILY [facility] Last Admin: 12/10/17 09:37 Dose: 2.5 mg Aspirin (Ecotrin (Ec)) 81 mg PO DAILY [facility] Last Admin: 12/11/17 09:08 Dose: 81 mg Atorvastatin Calcium (Lipitor) 10 mg PO QHS [facility] Last Admin: 12/10/17 22:10 Dose: 10 mg Carvedilol (Coreg) 25 mg PO DAILY [facility] Last Admin: 12/11/17 09:08 Dose: 25 mg Carvedilol (Coreg) 6.25 mg PO BID [facility] Last Admin: 12/11/17 09:08 Dose: 6.25 mg Donepezil HCl (Aricept) 5 mg PO DAILY [facility] Last Admin: 12/11/17 09:08 Dose: 5 mg Furosemide (Lasix) 20 mg PO BIDDIUR [facility] Last Admin: 12/11/17 09:08 Dose: 20 mg Azithromycin 500 mg/ Sodium (Chloride) 250 mls @ 250 mls/hr IVPB Q24H [facility] Stop: 12/16/17 11:01 Ceftriaxone Sodium 1 gm/ (Sodium Chloride) 100 mls @ 200 mls/hr IVPB Q24H [facility] Stop: 12/16/17 10:01 Isosorbide Mononitrate (Imdur) 30 mg PO DAILY [facility] Last Admin: 12/10/17 09:36 Dose: 30 mg Lisinopril (Zestril) 20 mg PO DAILY [facility] Last Admin: 12/11/17 09:08 Dose: 20 mg Memantine (Namenda) 10 mg PO BID [facility] Last Admin: 12/11/17 09:08 Dose: 10 mg Nitroglycerin (Nitrostat 0.4mg) 0.4 mg SL Q5MIN PRN PRN Reason: CHEST PAIN [facility] Last Admin: 12/11/17 06:50 Dose: 40 mg Rivaroxaban (Xarelto) 20 mg PO DAILY [facility] Last Admin: 12/11/17 09:08 Dose: 20 mg Tramadol HCl (Ultram) 50 mg PO Q6H PRN PRN Reason: PAIN - MOD TO SEVERE (5-10) AMI Plan - Labs Result Diagrams: 12/10/17 05:55 12/11/17 06:10
[2017-12-11] MEDS: AZITHROMYCIN 500 MG TABLET PO SCH (13:07)
[2017-12-11] MEDS: AMLODIPINE BESYLATE 5MG TAB PO SCH (13:10)
[2017-12-11] MEDS: ISOSORBIDE MONONITRATE 30 MG TAB.ER.24H PO SCH (13:10)
[2017-12-11] MEDS: AZITHROMYCIN 500 MG in 0.9 % SODIUM CHLORIDE 250ML 250 ML IVPB SCH (13:10)
[2017-12-11] MEDS: CEFTRIAXONE SODIUM 1 GM in 0.9 % SODIUM CHLORIDE 100ML 100 ML IVPB SCH (13:10)
[2017-12-11] MEDS: ACETAMINOPHEN 500 MG TABLET PO PRN (21:56)
[2017-12-11] MEDS: ATORVASTATIN 20 MG TABLET PO SCH (21:56)
[2017-12-12] MEDS: PANTOPRAZOLE SODIUM 40 MG TABLET PO SCH (07:00)
[2017-12-12 07:21] LABS: BASO % 0.4 % (0-6); EOS % 2.8 % (0-6); GRAN % 77.7 % (47-80); HEMOGLOBIN 11.4 gm/dl (14.0-18.0); LYMPH % 10.8 % (16-45); MEAN CELL VOLUME 81.2 fl (81-97); MONO % 8.3 % (0-9); PLATELET COUNT 180 K/uL (130-400); RED BLOOD COUNT 4.68 M/uL (4.40-5.70); RED CELL DISTRIBUTION WIDTH 14.8 % (11.5-14.5); WHITE BLOOD COUNT W/O DIFF 11.2 K/uL (4.2-12.2)
[2017-12-12 07:24] LABS: MEAN CORPUSCULAR HEMOGLOBIN 24.3 pg (27-33)
--- NOTE | 2017-12-12 07:31 | RADIOLOGY REPORT ---
EXAM: CHEST, TWO VIEWS HISTORY: FOLLOW-UP CHF. TECHNIQUE: AP and lateral views of the chest were obtained. Comparison: Two view chest 12/09/17. FINDINGS: Cardiomegaly. Calcification and torsion of the aorta. Postop sternotomy as before probably with some form of valve prosthesis as before. Persistent right pleural effusion blunting the right lateral costophrenic angle similar to before. On the lateral view there is prominent retrocardiac density as before which may also be some pleural fluid along the inferior aspect of the fissure on the right. Some persistent streaky atelectasis or infiltrate in the mid to lower lungs bilaterally has changed relatively little from yesterday. The lungs again appear hyperinflated suggesting underlying COPD. Multiple compression fracture in the thoracic spine as before. IMPRESSION: 1. CARDIOMEGALY. 2. PERSISTENT STREAKY ATELECTASIS OR INFILTRATE IN THE MID TO LOWER LUNGS RELATIVELY UNCHANGED FROM YESTERDAY. 3. RIGHT PLEURAL EFFUSION PROBABLY WITH FLUID ALONG THE INFERIOR ASPECT OF THE MAJOR FISSURE ON THE RIGHT SEEN ON THE LATERAL VIEW WELL, ALSO UNCHANGED. 4. POSTOP STERNOTOMY WITH VALVE PROSTHESIS BEFORE. 5. HYPERINFLATION BEFORE. 6. COMPRESSION FRACTURES THORACIC SPINE BEFORE. JOB NUMBER: [id number] MTDD
[2017-12-12 07:34] LABS: CREATININE 1.4 mg/dL (0.7-1.2)
[2017-12-12] MEDS: CEFTRIAXONE SODIUM 1 GM in 0.9 % SODIUM CHLORIDE 100ML 100 ML IVPB SCH (09:57)
[2017-12-12] MEDS: LISINOPRIL 20 MG TABLET PO SCH (10:06)
[2017-12-12] MEDS: FUROSEMIDE 20 MG TABLET PO SCH (10:06)
[2017-12-12] MEDS: MEMANTINE HCL 10 MG TABLET PO SCH (10:06)
[2017-12-12] MEDS: DONEPEZIL HCL 5 MG TABLET PO SCH (10:07)
[2017-12-12] MEDS: AMLODIPINE BESYLATE 5MG TAB PO SCH (10:07)
[2017-12-12] MEDS: RIVAROXABAN 20 MG TABLET PO SCH (10:07)
[2017-12-12] MEDS: AZITHROMYCIN 500 MG TABLET PO SCH (10:07)
[2017-12-12] MEDS: ASPIRIN 81 MG TABEC PO SCH (10:07)
[2017-12-12] MEDS: CARVEDILOL 12.5 MG TABLET PO SCH (10:08)
[2017-12-12] MEDS: CARVEDILOL 3.125 MG TABLET PO SCH (10:08)
[2017-12-12] MEDS: ISOSORBIDE MONONITRATE 30 MG TAB.ER.24H PO SCH (10:08)
--- NOTE | 2017-12-12 10:17 | Discharge Summary ---
Providers Discharge Summary Date: 12/12/17 Date of admission: 12/09/17 02:23 Attending physician: SHAVON ASTUDILLO Primary care physician: Luis Jones Physical Exam - Vital Signs Vital Signs: Vital Signs - Last 24 Hrs Temp Pulse Pulse Resp BP BP Pulse Ox 12/12/17 09:00 98.8 F 67 20 162/78 97 12/12/17 05:00 98.0 F 70 18 144/70 95 12/11/17 20:00 98.1 F 66 20 143/71 98 12/11/17 17:00 98.4 F 67 18 133/66 97 12/11/17 16:07 60 18 95 12/11/17 16:03 61 18 98 12/11/17 13:00 98.4 F 68 18 121/63 97 - General General Appearance: Alert, Oriented x3, Cooperative, No acute distress Limitations: No limitations - Head Head exam: Atraumatic, Normocephalic, Normal inspection - Eye Eye exam: Normal appearance - ENT Throat exam: Normal inspection. negative: Tonsillar erythema, Tonsillar exudate - Neck Neck exam: Normal inspection, Full ROM. negative: Tenderness - Respiratory Respiratory exam: Decreased breath sounds (on the left ), Rales (no rales this morning ), Other (patient has upper airway bronchial sounds. ). negative: Respiratory distress - Cardiovascular Cardiovascular Exam: Regular rate, Normal rhythm, Normal heart sounds Peripheral Pulses: 2+: Radial (R), Radial (L), Dorsalis Pedis (R), Dorsalis Pedis (L) - GI/Abdominal GI/Abdominal exam: Soft, Normal bowel sounds. negative: Tenderness - Extremities Extremities exam: Normal inspection, Full ROM, Normal capillary refill. negative: Tenderness - Back Back exam: Reports: Normal inspection - Neurological Neurological exam: Alert, Oriented X3. negative: Altered, Motor sensory deficit - Skin Skin exam: negative: Rash Hospitalization - Hospitalization Admission Diagnosis: 1. CHF - Problem List/Discharge Diagnosis (1) Pneumonia of both lower lobes Current Visit: Yes Status: Acute Base Code: J18.9 - PNEUMONIA, UNSPECIFIED ORGANISM Comment: 12/12/17: - CXR 12/10: opacities of bilateral lower lung lobes. - Recephin 1 gm Q24H, Zithromax 500mg Q24H, WBCs stable, afebrile. - Change to Cefdinir 300mg Q12H and Zithromax 500mg Q24H - Albuterol nebs Q6H ORN - Oxygen to maintain sats > 92% (2) Acute exacerbation of congestive heart failure Current Visit: Yes Status: Acute Base Code: I50.9 - HEART FAILURE, UNSPECIFIED Comment: 12/12/17: - CXR: evidence of congestion, BNP > 5000 - resolved - IV Lasix 20mg BID, resume Coreg 25mg and Coreg 6.25mg BID?, Imdur 30mg held, and Lisinopril 20mg daily,Atorvastatin 10mg, ASA 81mg. - repeat basic metabolic panel, daily weights, I/Os - continuous cardiac monitoring (3) Acute on chronic renal insufficiency Current Visit: Yes Status: Acute Base Code: N28.9 - DISORDER OF KIDNEY AND URETER, UNSPECIFIED; N18.9 - CHRONIC KIDNEY DISEASE, UNSPECIFIED Comment: 12/12/17: - Bun/Cr 37/1.6, --> 40/1.5 --> 31/1.4 (4) HTN (hypertension) Current Visit: Yes Status: Acute Base Code: I10 - ESSENTIAL (PRIMARY) HYPERTENSION Comment: 12/12/17: - hold amlodipine and Coreg. Give Lisinopril 20mg - resume Amlodipine 2.5mg, Lisinopril 20mg daily. (5) CAD (coronary artery disease) Current Visit: Yes Status: Acute Base Code: I25.10 - ATHSCL HEART DISEASE OF [place] CORONARY ARTERY W/O ANG PCTRS Comment: 12/12/17: - old LBBB, Qtc prolongation, NSR, hx of CABG x 3 - resumes ASA, Coreg, Lisinopril, Atorvastatin. - cont site monitor (6) DVT prophylaxis Current Visit: Yes Status: Acute Base Code: [id number] - Comment: 12/12/17: - pt on Xarelto but we are unclear if he has a fib, or hx of dvt. There is no documentation of either of these conditions. (7) DNR (do not resuscitate) Current Visit: Yes Status: Acute Base Code: Z66 - DO NOT RESUSCITATE Comment: 12/12/17: - pt is DNR on this admission. - Hospitalization Course Hospital Course: Mr. Henry is a 81 y/o male [facility] assisted [facility] resident with history of congestive heart failure who presents with complaint of increasing shortness of breath and persistent cough over the past week. The patient reports that he then began to have chest pain but only when he coughs. He says that he becomes short of breath when he climbs stairs but can walk around using his walker without becoming winded. The patient reports compliance with his medications and has not been eating excessive amounts of salty foods or had an increase in fluid intake. He denies radiation of his pain or palpitations. He has a history of coronary artery disease with CABG x 3, CVA, seizures and malignant neoplasm of the esophagus. 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 Chest xray shows evidence of congestion and his BNP > 5000. The patient is admitted for IV diuresis and optimization of heart failure medication. 12/10-12/11: The patient's acute heart failure resolved however chest xray read lower lung lobe pneumonia. He was started on Rocephin 1gm daily and Azithromycin 500mg daily. He has no had any mucus production, fevers or worsening of his respiratory status. The patient's kidney function did appear to be acute on chronic, and trended down to what appears to be his baseline function. The patient has a reported allergy to cephalosporins but not reaction was noted upon administration of Rocephin. Will discharge on Cefdinir and Azithromycin for seven days. 12/12: The patient is evaluated this morning at bedside and he is awake and alert with no respiratory distress. He is able to ambulate to the restroom with assistance and maintain saturations in the low 90s. Vitals this morning: BP 162/ 78--. 136/59, HR 67, RR 18, Sats 97% 2 liters, T 98.9. His renal function appears to have stabilized with eGFR suggestive of CKDIII. He is stable for return to [facility]. PCP: Dr. Jones Procedures: Imaging and X-Rays 12/09/17 01:12 CHEST 2 VIEWS [RAD] Stat 12/10/17 16:25 CHEST 2 VIEWS [RAD] Stat Cardiology Procedures 12/09/17 01:12 Director Customer NOW EKG NOW 12/09/17 02:39 Director Customer .Continuous EKG QDX2@0600 Abnormal Labs: Abnormal Lab Results 12/09/17 12/09/17 12/09/17 Range/Units 00:34 00:34 00:34 Hgb 12.1 L (14.0-18.0) gm/dl Hct 39.8 L (42.0-52.0) % MCV (81-97) fl MCH 24.6 L (27-33) pg MCHC 30.4 L (32-36) g/dl RDW 14.7 H (11.5-14.5) % Lymphocytes % 14.8 L (16-45) % Monocytes % (0-9) % PT 14.5 H (9.5-12.1) SECONDS APTT 40.5 H (24.5-39.1) SECONDS Carbon Dioxide 31.0 H (22-29) mmol/L BUN 24 H (8-23) mg/dL Creatinine 1.3 H (0.7-1.2) mg/dL Random Glucose 136 H (74-109) mg/dL Creatine Kinase 31 L (39-308) U/L Troponin T (0-0.010) ng/mL NT-Pro-B Natriuret Pep 5047.00 H (<450) pg/mL 12/09/17 12/10/17 12/10/17 Range/Units 14:12 05:55 05:55 Hgb 10.8 L (14.0-18.0) gm/dl Hct 35.8 L (42.0-52.0) % MCV 80.8 L (81-97) fl MCH 24.3 L (27-33) pg MCHC 30.2 L (32-36) g/dl RDW 14.8 H (11.5-14.5) % Lymphocytes % (16-45) % Monocytes % 10.1 H (0-9) % PT (9.5-12.1) SECONDS APTT (24.5-39.1) SECONDS Carbon Dioxide 30.0 H (22-29) mmol/L BUN 37 H (8-23) mg/dL Creatinine 1.6 H (0.7-1.2) mg/dL Random Glucose 114 H (74-109) mg/dL Creatine Kinase (39-308) U/L Troponin T 0.015 H (0-0.010) ng/mL NT-Pro-B Natriuret Pep (<450) pg/mL 12/11/17 12/12/17 12/12/17 Range/Units 06:10 06:26 06:26 Hgb 11.4 L (14.0-18.0) gm/dl Hct 38.0 L (42.0-52.0) % MCV (81-97) fl MCH 24.3 L (27-33) pg MCHC 30.0 L (32-36) g/dl RDW 14.8 H (11.5-14.5) % Lymphocytes % 10.8 L (16-45) % Monocytes % (0-9) % PT (9.5-12.1) SECONDS APTT (24.5-39.1) SECONDS Carbon Dioxide 30.0 H 30.0 H (22-29) mmol/L BUN 40 H 31 H (8-23) mg/dL Creatinine 1.5 H 1.4 H (0.7-1.2) mg/dL Random Glucose 121 H 114 H (74-109) mg/dL Creatine Kinase (39-308) U/L Troponin T (0-0.010) ng/mL NT-Pro-B Natriuret Pep (<450) pg/mL Condition at Discharge: (2) Stable Discharge Medications - Discharge Medications Prescriptions: Azithromycin [Zithromax] 500 mg PO DAILY 7 Days #7 tab Cefdinir [Omnicef] 300 mg PO BID 7 Days #14 cap Home Medications: Ambulatory Orders Amlodipine Besylate [Norvasc] 2.5 mg PO DAILY 12/09/17 [Last Taken Unknown] Aspirin [Aspir-Low] 81 mg PO DAILY 12/09/17 [Last Taken Unknown] Atorvastatin Calcium [Lipitor] 10 mg PO QHS 12/09/17 [Last Taken Unknown] Carvedilol 25 mg PO DAILY 12/09/17 [Last Taken Unknown] Carvedilol [Coreg] 6.25 mg PO BID 12/09/17 [Last Taken Unknown] Donepezil HCl [Aricept] 5 mg PO DAILY 12/09/17 [Last Taken Unknown] Furosemide [Lasix] 20 mg PO DAILY 12/09/17 [Last Taken Unknown] Isosorbide Mononitrate [Imdur] 30 mg PO DAILY 12/09/17 [Last Taken Unknown] Lisinopril 20 mg PO DAILY 12/09/17 [Last Taken Unknown] Memantine HCl [Namenda] 10 mg PO BID 12/09/17 [Last Taken Unknown] Multivit-Min/FA/Lycopen/Lutein [Centrum Silver Men Tablet] 1 each PO DAILY 12/09 [Last Taken Unknown] Omeprazole 20 mg PO DAILY 12/09/17 [Last Taken Unknown] Rivaroxaban [Xarelto] 20 mg PO DAILY 12/09/17 [Last Taken Unknown] Tramadol HCl 50 mg PO Q6H PRN 12/09/17 [Last Taken Unknown] Azithromycin [Zithromax] 500 mg PO DAILY 7 Days #7 tab 12/12/17 [Last Taken Unknown] Cefdinir [Omnicef] 300 mg PO BID 7 Days #14 cap 12/12/17 [Last Taken Unknown] Discharge Plan - Discharge Instructions Activity at Discharge: Resume Usual Activities As Tolerated Diet at Discharge: Low Fat, Low Cholesterol, Low Salt Diet Instructions: Heart Failure (ED) Additional Instructions: The patient is to resume usual dosing of Lasix 20mg daily for his heart failure. Two antibiotics are being given for his pneumonia: Cefdinir 300mg twice daily and Zithromax 500mg daily for the next seven days. a repat chest xray for resolution in 1-2 weeks. Follow up with the patient's PCP Quality Measures - Quality Measures Quality Measures: Advance Directives, Coronary Artery Disease: Antiplatelet Therapy, Documentation of Current Medications in Medical Record, Elder Maltreatment Screen and Follow-Up Plan, Heart Failure, Screening for High Blood Pressure and F/U Documented - Current Medications Quality Measure: Measure #130: Documentation of Current Medications Documentation of Current Medications: <Current Medications Documented/Reviewed> [A1052] - Blood Pressure Screening Quality Measure: Screening for High Blood Pressure and Follow-Up Documented Does Patient Have Any of the Following: Active Dx of HTN Blood Pressure Classification: Pre-Hypertensive BP Reading Systolic Measurement: 144 Diastolic Measurement: 80 Screening for High Blood Pressure: Patient Exclusion, Hx of HTN [G9264] - Coronary Artery Disease Quality Measure: Measure #6: Coronary Artery Disease (CAD) Antiplatelet Therapy: <ASA or clopidogrel prescribed> [7972O] - Heart Failure (NAHUN/ARB Therapy) Quality Measure: Heart Failure Left Ventricular Systolic Function: Unknown NAHUN Inhibitor or ARB Therapy for LVSD: Not Eligible - Heart Failure (Beta-sushila Therapy) Quality Measure: Heart Failure Left Ventricular Systolic Function: Unknown Beta-Sushila Therapy for LVEF < 40%: Not Eligible - Advance Directives Quality Measure: Measure #47: Care Plan Advance Directives Established: No Advance Directives Information Provided To Patient: No Advance Directives on File: No Living Will: No (unknown) Power of Telecommunications Line Mechanic: No (unknown) Advance Care Planning: <Care Plan/Decision Maker Documented; Discussed & Documented> [5563F] - Elder Abuse Suspicion Index Screening: Elder Abuse Suspicion Index Screening Rely on people for bathing, dressing, shopping, banking, etc: Yes Prevented from getting food, clothes, medication, etc: No Made to feel shamed or threatened by someone: No Forced to sign papers or use money against will: No Feel afraid, touched in ways not wanted or hurt physically: No Poor eye contact, withdrawn, malnourished, cuts or bruises: No Screening Result: Negative result EASI Reference Information: Rita NORRIS, Lanre C, Silvio D, Kev Mosher.Development and validation of a tool to assist physicians identification of elder abuse: The Elder Abuse Suspicion Index (EASI ). Journal of Elder Abuse and Neglect, 2008; 20 (3): 276-300. - Elder Maltreatment Screen Quality Measures: Elder Maltreatment Screen and Follow-Up Plan Elder Maltreatment Screen: <Negative, No Follow-Up Plan Required> [[id number]]
[2017-12-12] MEDS: AZITHROMYCIN 500 MG in 0.9 % SODIUM CHLORIDE 250ML 250 ML IVPB SCH (11:52)
[2017-12-12] MEDS ORDERED: CEFTRIAXONE 1GM/50ML BAG 1 GM/50 ML BAG IVPB SCH (13:30)
== END 2017-12-12 13:30 ==
LOC: ER 00:42 → MEDSURG 02:23
PROVIDERS: ADMIT Internal Medicine; ATTEND Internal Medicine
DX: I50.9 Heart failure, unspecified (principal); J18.9 Pneumonia, unspecified organism; N28.9 Disorder of kidney and ureter, unspecified; R07.9 Chest pain, unspecified; J44.9 Chronic obstructive pulmonary disease, unspecified; I25.2 Old myocardial infarction; I10 Essential (primary) hypertension; I25.10 Atherosclerotic heart disease of native coronary artery without angina pectoris; F03.90 Unspecified dementia, unspecified severity, without behavioral disturbance, psychotic disturbance, mood disturbance, and anxiety; K21.9 Gastro-esophageal reflux disease without esophagitis; Z85.01 Personal history of malignant neoplasm of esophagus; Z95.5 Presence of coronary angioplasty implant and graft; Z95.1 Presence of aortocoronary bypass graft; Z86.73 Personal history of transient ischemic attack (TIA), and cerebral infarction without residual deficits; Z87.891 Personal history of nicotine dependence; Z66 Do not resuscitate
CPT/HCPCS: 82550; 85025 ×3; 85730; 85610; 82553; 80048 ×4; 84484; 83880; 71046 ×2; 94640 ×2; 94761; 94760 ×2; 93005 ×2; 93010; G0378 ×4; 96374; 99217; 99220; 99226; 99285; J0456; J1940; J7050; J7613